=== PATIENT | male | born 1990 | race Two or more races ===

== ENCOUNTER 2024-04-22 00:42 | Emergency (ER) | payer OTHER ==
[~2024-04-22] VITALS: Ht 177.8 cm; Wt 77.1 kg
[2024-04-22 00:55] VITALS: O2SAT 98
[2024-04-22 00:59] VITALS: BP 124/74; PULSE 86; RESP 16; TEMP 98.3; O2SAT 99
[2024-04-22] MEDS ORDERED: DIPHENHYDRAMINE 50MG/ML VIAL IM ONE (01:15)
[2024-04-22] MEDS ORDERED: SUMATRIPTAN SUCCINATE 6MG/0.5ML VIAL SUBCUT ONE (01:15)
[2024-04-22] MEDS ORDERED: KETOROLAC 30MG/ML VIAL IM ONE (01:15)
[2024-04-22] MEDS ORDERED: METOCLOPRAMIDE HCL 10MG/2ML VIAL IM ONE (01:15)
[2024-04-22] MEDS ORDERED: SODIUM CHLORIDE 0.9% 1,000 ML IV ONE (02:45)
== END 2024-04-22 05:30 | disposition left against medical advice (07) ==
LOC: ER 02:22
DX: G43.909 Migraine, unspecified, not intractable, without status migrainosus (principal)
CPT/HCPCS: 99281; J7030